=== PATIENT | female | born 1960 | race Caucasian/White ===

== ENCOUNTER 2017-02-28 13:32 | Emergency (ER) | payer BC ==
[~2017-02-28] VITALS: Ht 154.9 cm; Wt 62.6 kg
[2017-02-28] MEDS ORDERED: LEVO125T3 (13:40)
[2017-02-28] MEDS ORDERED: MELO7.5T6 (13:40)
[2017-02-28] MEDS ORDERED: ATEN50TA2 (13:40)
[2017-02-28] MEDS ORDERED: LISI40TAB (13:40)
[2017-02-28] MEDS ORDERED: PRED20TA (13:40)
[2017-02-28] MEDS ORDERED: GASTROGRAFIN SOLUTION 30ML (Q9963) PO ONE (14:15)
--- NOTE | 2017-02-28 14:40 | REP ---
Supine abdomen single AP view: There is opaque material seen throughout the feeding tube and there is opaque material in the fundus and body of the stomach. There is no extraluminal extravasation. Bowel gas pattern is normal. Skeletal structures and soft tissues are unremarkable. Signed by Jm Ji MD 02/28/2017 02:32 P
[2017-02-28] MEDS ORDERED: [UNRECOGNIZED DRUG - CODE] XX (14:54)
[2017-02-28 14:59] VITALS: BP 149/95
== END 2017-02-28 15:09 | disposition home or self-care (01) ==
LOC: M ED 14:09
DX: Z43.1 Encounter for attention to gastrostomy (principal); Z85.819 Personal history of malignant neoplasm of unspecified site of lip, oral cavity, and pharynx; Z79.52 Long term (current) use of systemic steroids; Z79.899 Other long term (current) drug therapy
CPT/HCPCS: 43760; 74000; 99282; Q9963